=== PATIENT | male | born 1940 | race Caucasian/White ===

== ENCOUNTER → 2017-03-19 | Outpatient (CLI) | payer MEDICARE ==
[~2017-03-19] MED LIST: ACET-2743 PO; ATOR40TA69 PO; CARV25TA PO; CHOL500062 PO; DONE10TA8 PO; FENO150C4 PO; ISOS20TA7 PO; KETO5DRO82 OP; LOSA100T29 PO; MIRA50TA PO; WARF-57 PO; WARF2.5T85 PO
== END | disposition home or self-care (01) ==
LOC: LAB 03-17 11:26
PROVIDERS: ATTEND Internal Medicine Gastroenterology
DX: R19.7 Diarrhea, unspecified (principal)
CPT/HCPCS: 87507

== ENCOUNTER 2021-05-14 06:40 | Observation (INO) | payer MEDICARE ==
[~2021-05-14] VITALS: Ht 162.6 cm; Wt 97.5 kg
[~2021-05-14 06:40] MED LIST changes: -ACET-2743 PO; +ASPI-556 PO; -CARV25TA PO; +CHOL4PAC21 PO; +DIPH1TAB PO; +FENO145T26 PO; -FENO150C4 PO; +GLYC2TAB21 PO; -ISOS20TA7 PO; +ISOS60TA77 PO; +KETO.5OS OD; -KETO5DRO82 OP; +LACT1CAP81 PO; +LEVO25TA4 PO; -LOSA100T29 PO; -WARF-57 PO; +WARF2.5T PO; -WARF2.5T85 PO
[2021-05-14 07:17] LABS: BASOPHILS % (AUTO) 0.3 % (0.0-5.0); EOSINOPHILS % (AUTO) 0.8 % (0.0-8.0); HEMATOCRIT 48.6 % (42-54); LYMPHOCYTES % (AUTO) 1.3 % (21.0-51.0); MEAN CORPUSCULAR HEMOGLOBIN 28.2 pg (27.0-33.0); MEAN CORPUSCULAR HGB CONC 32.3 g/dL (32.0-36.0); MEAN CORPUSCULAR VOLUME 87.4 fL (79-99); NEUTROPHILS % (AUTO) 86.4 % (40.0-77.0); PLATELET COUNT (AUTO) 207 K/uL (130-400); RED BLOOD CELL COUNT(AUTO) 5.56 MIL/uL (4.50-6.20); RED CELL DISTRIBUTION WIDTH 14.6 % (11.0-15.5); WHITE BLOOD COUNT (AUTO) 16.9 K/uL (4.8-10.8)
[2021-05-14] MEDS ORDERED: 0.9%NACL 1000ML 1,000 ML IV SCH (07:30)
[2021-05-14] MEDS ORDERED: 0.9%NACL 1000ML 1,000 ML IV ONE (07:33)
[2021-05-14 07:45] LABS: ALBUMIN 3.8 g/dL (3.5-5.0); BILIRUBIN,TOTAL 0.8 mg/dL (0.2-1.0); CREATININE 1.9 mg/dL (0.5-1.5); POTASSIUM 4.2 mmol/L (3.5-5.1); TOTAL PROTEIN, SERUM 7.1 g/dL (6.0-8.3)
[2021-05-14] MEDS ORDERED: ZOSYN 3.375GM +NS 50ML IV SCH (07:53)
[2021-05-14] MEDS ORDERED: 0.9%NACL 50ML 50 ML IV ONE (08:25)
[2021-05-14] MEDS ORDERED: ACETAMINOPHEN 500 MG TABLET PO SCH (09:30)
[2021-05-14] MEDS ORDERED: ACETAMINOPHEN 500 MG TABLET ONE (09:31)
[2021-05-14] MEDS ORDERED: ONDANSETRON 4MG INJ IVP PRN (13:00)
[2021-05-14] MEDS ORDERED: HYDRALAZINE 20MG/ML VIAL IV PRN (13:00)
[2021-05-14] MEDS: 0.9%NACL 1000ML 1,000 ML IV SCH ×2 (13:05→20:30)
[2021-05-14] MEDS ORDERED: PHARMACY COMMUNICATION MISC SCH (13:30)
[2021-05-14 14:20] VITALS: BP 143/69
[2021-05-14] MEDS: LOPERAMIDE HCL 2 MG CAP PO PRN (14:43)
[2021-05-14 16:00] VITALS: BP 126/75
[2021-05-14 19:57] VITALS: BP 141/67
[2021-05-14] MEDS: ZOSYN 3.375GM +NS 50ML IV SCH (20:32)
[2021-05-14] MEDS ORDERED: FAMOTIDINE 20MG VIAL IV SCH (21:00)
[2021-05-14 23:06] VITALS: BP 133/78
[2021-05-15 03:14] VITALS: BP 165/71
[2021-05-15 07:57] VITALS: BP 138/69
[2021-05-15] MEDS ORDERED: DICY20TA2 PO (08:58)
[2021-05-15] MEDS ORDERED: CEPH500B PO (08:58)
[2021-05-15] MEDS ORDERED: LOPE2CAP PO (08:58)
[2021-05-15] MEDS ORDERED: ENOXAPARIN SODIUM 40 MG/0.4 ML SYRINGE SQ SCH (09:00)
[2021-05-15 09:28] LABS: HEMATOCRIT 37.9 % (42-54); MEAN CORPUSCULAR HEMOGLOBIN 29.5 pg (27.0-33.0); MEAN CORPUSCULAR HGB CONC 32.7 g/dL (32.0-36.0); MEAN CORPUSCULAR VOLUME 90.2 fL (79-99); RED BLOOD CELL COUNT(AUTO) 4.2 MIL/uL (4.50-6.20); RED CELL DISTRIBUTION WIDTH 14.9 % (11.0-15.5); WHITE BLOOD COUNT (AUTO) 14.1 K/uL (4.8-10.8)
[2021-05-15 09:37] LABS: CREATININE 1.7 mg/dL (0.5-1.5); POTASSIUM 3.2 mmol/L (3.5-5.1)
[2021-05-15] MEDS: ZOSYN 3.375GM +NS 50ML IV SCH (10:26)
[2021-05-15] MEDS ORDERED: KCL 20 MEQ ERTAB PO SCH (11:30)
[2021-05-15 12:00] VITALS: BP 129/62
[2021-05-15] MEDS: LOPERAMIDE HCL 2 MG CAP PO PRN (12:52)
[2021-05-16] MEDS ORDERED: ATOR40TA71 PO (01:06)
[2021-05-16] MEDS ORDERED: MIRA50TA PO (01:06)
[2021-05-16] MEDS ORDERED: AMLO-257 PO (01:06)
[2021-05-16] MEDS ORDERED: FAMO20TA8 PO (01:06)
[2021-05-16] MEDS ORDERED: GLYC2TAB21 PO (01:06)
[2021-05-16] MEDS ORDERED: SERT-439 PO (01:06)
[2021-05-16] MEDS ORDERED: AEC81 PO (01:06)
[2021-05-16] MEDS ORDERED: MONT-39 PO (01:06)
[2021-05-16] MEDS ORDERED: ISOS30TA92 PO (01:06)
[2021-05-16] MEDS ORDERED: LORA10TA7 PO (01:06)
[2021-05-16] MEDS ORDERED: MELA10CA2 PO (01:06)
[2021-05-16] MEDS ORDERED: LEVO88TA4 PO (01:06)
[2021-05-16] MEDS ORDERED: CHOL4PAC6 PO (01:06)
[2021-05-16] MEDS ORDERED: BUDE9TAB2 PO (01:06)
[2021-05-16] MEDS ORDERED: WARF-57 PO (01:06)
[2021-05-16] MEDS ORDERED: AZEL23SP2 NS (01:06)
[2021-05-16] MEDS ORDERED: VIT-12 PO (01:06)
[2021-05-16] MEDS ORDERED: KETO.5OS OU (01:06)
[2021-05-16] MEDS ORDERED: ACET-2743 PO (01:06)
[2021-05-16] MEDS ORDERED: WARF2.5T85 PO (01:06)
[2021-05-16] MEDS ORDERED: MV-M1TAB20 PO (01:06)
[2021-05-16] MEDS ORDERED: FENO145T26 PO (01:06)
[2021-05-16] MEDS ORDERED: L.AC1CAP6 PO (01:06)
== END 2021-05-15 14:30 | disposition home or self-care (01) ==
LOC: EDH 06:40 → EDHIP 12:51 → 3CH 14:07 → UNDODISOB 05-15 14:30
PROVIDERS: ADMIT Hospitalist; ATTEND Hospitalist
DX: A41.9 Sepsis, unspecified organism (principal); Z20.822 Contact with and (suspected) exposure to COVID-19; K52.9 Noninfective gastroenteritis and colitis, unspecified; E86.0 Dehydration; N17.9 Acute kidney failure, unspecified; D72.829 Elevated white blood cell count, unspecified; K80.20 Calculus of gallbladder without cholecystitis without obstruction; E03.9 Hypothyroidism, unspecified; E78.5 Hyperlipidemia, unspecified; I12.9 Hypertensive chronic kidney disease with stage 1 through stage 4 chronic kidney disease, or unspecified chronic kidney disease; E11.22 Type 2 diabetes mellitus with diabetic chronic kidney disease; N18.9 Chronic kidney disease, unspecified; R32 Unspecified urinary incontinence; N40.0 Benign prostatic hyperplasia without lower urinary tract symptoms; I25.10 Atherosclerotic heart disease of native coronary artery without angina pectoris; J44.9 Chronic obstructive pulmonary disease, unspecified; F03.90 Unspecified dementia, unspecified severity, without behavioral disturbance, psychotic disturbance, mood disturbance, and anxiety; Z86.73 Personal history of transient ischemic attack (TIA), and cerebral infarction without residual deficits; Z79.82 Long term (current) use of aspirin; Z79.899 Other long term (current) drug therapy; Z87.891 Personal history of nicotine dependence; Z79.01 Long term (current) use of anticoagulants; Z95.2 Presence of prosthetic heart valve
CPT/HCPCS: 36415 ×2; 74176; 80048; 80053; 83605 ×2; 83690; 84484; 85025; 85027; 87040 ×2; 87077; 87186; 87324; 87507; 87635; 93005; 96361 ×2; 96365; 96366 ×2; 96372; 96375; 99285; G0378 ×25; J1650; J2543 ×3; J3490; J7030 ×2

== ENCOUNTER 2021-05-15 18:36 | Inpatient (IN) | payer MEDICARE ==
[~2021-05-15] VITALS: Ht 162 cm; Wt 96.6 kg
[~2021-05-15 18:36] MED LIST changes: +CEPH500B PO; +DICY20TA2 PO; +LOPE2CAP PO
[2021-05-15 19:00] VITALS: BP 118/71
[2021-05-15] MEDS ORDERED: COMPOUND IV REFRIGERATED 1 EACH IVSOLN MISC PRN (20:00)
[2021-05-15] MEDS ORDERED: VANCOMYCIN PROTOCOL PER PHARMACY IV SCH (20:00)
[2021-05-15] MEDS ORDERED: MORPHINE 2 MG SYG IV PRN (21:00)
[2021-05-15] MEDS ORDERED: ACETAMINOPHEN 325 MG TAB PO PRN ×2 (21:00)
[2021-05-15] MEDS ORDERED: ONDANSETRON 4MG INJ IV PRN (21:00)
[2021-05-15] MEDS: 0.9%NACL 1000ML 1,000 ML IV SCH ×2 (21:03→21:11)
[2021-05-15] MEDS: VANCOMYCIN 1.5GM/NS 250ML IV SCH ×2 (21:05)
[2021-05-15] MEDS: FAMOTIDINE 20MG VIAL IV SCH (21:08)
[2021-05-16] VITALS: BP 141/65
[2021-05-16] MEDS ORDERED: ATOR40TA71 PO (01:06)
[2021-05-16] MEDS ORDERED: WARF-57 PO (01:06)
[2021-05-16] MEDS ORDERED: AZEL23SP2 NS (01:06)
[2021-05-16] MEDS ORDERED: SERT-439 PO (01:06)
[2021-05-16] MEDS ORDERED: MV-M1TAB20 PO (01:06)
[2021-05-16] MEDS ORDERED: LORA10TA7 PO (01:06)
[2021-05-16] MEDS ORDERED: ACET-2743 PO (01:06)
[2021-05-16] MEDS ORDERED: BUDE9TAB2 PO (01:06)
[2021-05-16] MEDS ORDERED: L.AC1CAP6 PO (01:06)
[2021-05-16] MEDS ORDERED: ISOS30TA92 PO (01:06)
[2021-05-16] MEDS ORDERED: GLYC2TAB21 PO (01:06)
[2021-05-16] MEDS ORDERED: CHOL4PAC6 PO (01:06)
[2021-05-16] MEDS ORDERED: AEC81 PO (01:06)
[2021-05-16] MEDS ORDERED: LEVO88TA4 PO (01:06)
[2021-05-16] MEDS ORDERED: FENO145T26 PO (01:06)
[2021-05-16] MEDS ORDERED: AMLO-257 PO (01:06)
[2021-05-16] MEDS ORDERED: MELA10CA2 PO (01:06)
[2021-05-16] MEDS ORDERED: MIRA50TA PO (01:06)
[2021-05-16] MEDS ORDERED: MONT-39 PO (01:06)
[2021-05-16] MEDS ORDERED: WARF2.5T85 PO (01:06)
[2021-05-16] MEDS ORDERED: KETO.5OS OU (01:06)
[2021-05-16] MEDS ORDERED: VIT-12 PO (01:06)
[2021-05-16] MEDS ORDERED: FAMO20TA8 PO (01:06)
[2021-05-16 04:00] VITALS: BP 137/56
[2021-05-16 04:59] LABS: BASOPHILS % (AUTO) 0.4 % (0.0-5.0); EOSINOPHILS % (AUTO) 1.5 % (0.0-8.0); HEMATOCRIT 35.1 % (42-54); LYMPHOCYTES % (AUTO) 9.6 % (21.0-51.0); MEAN CORPUSCULAR HEMOGLOBIN 29.8 pg (27.0-33.0); MEAN CORPUSCULAR HGB CONC 33.9 g/dL (32.0-36.0); MONOCYTES % (AUTO) 11.6 % (3.0-13.0); NEUTROPHILS % (AUTO) 76.2 % (40.0-77.0); PLATELET COUNT (AUTO) 161 K/uL (130-400); RED BLOOD CELL COUNT(AUTO) 3.99 MIL/uL (4.50-6.20); RED CELL DISTRIBUTION WIDTH 14.5 % (11.0-15.5); WHITE BLOOD COUNT (AUTO) 11.3 K/uL (4.8-10.8)
[2021-05-16 05:23] LABS: ALBUMIN 2.8 g/dL (3.5-5.0); BILIRUBIN,TOTAL 0.6 mg/dL (0.2-1.0); CREATININE 1.4 mg/dL (0.5-1.5); POTASSIUM 3.5 mmol/L (3.5-5.1)
[2021-05-16 06:28] LABS: ERYTHROCYTE SEDIMENTATION RATE 17 MM/HR (0-20)
[2021-05-16 07:30] VITALS: BP 137/74
[2021-05-16] MEDS: FAMOTIDINE 20MG VIAL IV SCH ×2 (08:42→20:35)
[2021-05-16] MEDS ORDERED: ENOXAPARIN SODIUM 30 MG/0.3 ML SQ SCH (09:00)
[2021-05-16] MEDS ORDERED: LOPERAMIDE HCL 2 MG CAP PO PRN (09:00)
[2021-05-16] MEDS: ACIDOPH PO SCH (09:00)
[2021-05-16] MEDS: PARACASEI B LACTIS PO SCH (09:00)
[2021-05-16] MEDS: 0.9%NACL 1000ML 1,000 ML IV SCH ×4 (09:20→22:43)
[2021-05-16] MEDS: ISOSORBIDE MONO 30MG SR TAB PO SCH (09:33)
[2021-05-16] MEDS: ASPIRIN 81 MG EC TAB PO SCH (09:33)
[2021-05-16] MEDS: AMLODIPINE 5 MG TAB PO SCH (09:33)
[2021-05-16] MEDS: LEVOTHYROXINE 88 MCG TABLET PO SCH (09:33)
[2021-05-16 11:00] VITALS: BP 116/74
[2021-05-16 16:00] VITALS: BP 130/71
[2021-05-16] MEDS ORDERED: WARFARIN SODIUM 2.5 MG TAB PO SCH (16:00)
[2021-05-16 20:16] VITALS: BP 123/73
[2021-05-16] MEDS: VANCOMYCIN 1.5GM/NS 250ML IV SCH ×2 (20:40)
[2021-05-16] MEDS ORDERED: ATORVASTATIN 40 MG TABLET PO SCH (21:00)
[2021-05-17 00:20] VITALS: BP 146/70
[2021-05-17 04:24] VITALS: BP 158/76
[2021-05-17 05:05] LABS: HEMATOCRIT 31.8 % (42-54); MEAN CORPUSCULAR HEMOGLOBIN 29.2 pg (27.0-33.0); MEAN CORPUSCULAR HGB CONC 33.3 g/dL (32.0-36.0); MEAN CORPUSCULAR VOLUME 87.6 fL (79-99); RED BLOOD CELL COUNT(AUTO) 3.63 MIL/uL (4.50-6.20); RED CELL DISTRIBUTION WIDTH 14.5 % (11.0-15.5); WHITE BLOOD COUNT (AUTO) 9.5 K/uL (4.8-10.8)
[2021-05-17 05:13] LABS: CREATININE 1.2 mg/dL (0.5-1.5); POTASSIUM 3.2 mmol/L (3.5-5.1)
[2021-05-17] MEDS: LEVOTHYROXINE 88 MCG TABLET PO SCH (05:34)
[2021-05-17 07:10] VITALS: BP 154/74
[2021-05-17] MEDS ORDERED: POTASSIUM CHLORIDE 10% ELIXIR 20 MEQ/15 ML UDCUP PO PRN (08:00)
[2021-05-17] MEDS ORDERED: LIDOCAINE HCL-MPF 1% 2ML VIAL IV PRN (08:00)
[2021-05-17] MEDS ORDERED: POTASSIUM CHLORIDE 20MEQ/100ML 100 ML IV PRN (08:00)
[2021-05-17] MEDS ORDERED: KCL 20 MEQ ERTAB PO PRN (08:00)
[2021-05-17] MEDS: ASPIRIN 81 MG EC TAB PO SCH (08:30)
[2021-05-17] MEDS: AMLODIPINE 5 MG TAB PO SCH (08:31)
[2021-05-17] MEDS: ISOSORBIDE MONO 30MG SR TAB PO SCH (08:31)
[2021-05-17] MEDS: FAMOTIDINE 20MG VIAL IV SCH (08:31)
[2021-05-17] MEDS: ACIDOPH PO SCH (08:36)
[2021-05-17] MEDS: PARACASEI B LACTIS PO SCH (08:36)
[2021-05-17 11:10] VITALS: BP 136/100
[2021-05-17] MEDS ORDERED: WARFARIN SODIUM 5 MG TAB PO SCH (16:00)
== END 2021-05-17 13:10 | disposition home or self-care (01) | DRG 872 ==
LOC: 3CH 18:36
PROVIDERS: ADMIT Hospitalist; ATTEND Hospitalist
DX: A41.9 Sepsis, unspecified organism (principal); N17.9 Acute kidney failure, unspecified; I12.9 Hypertensive chronic kidney disease with stage 1 through stage 4 chronic kidney disease, or unspecified chronic kidney disease; N18.9 Chronic kidney disease, unspecified; E86.0 Dehydration; E03.9 Hypothyroidism, unspecified; E78.5 Hyperlipidemia, unspecified; I25.10 Atherosclerotic heart disease of native coronary artery without angina pectoris; K52.9 Noninfective gastroenteritis and colitis, unspecified; N40.0 Benign prostatic hyperplasia without lower urinary tract symptoms; R32 Unspecified urinary incontinence; J44.9 Chronic obstructive pulmonary disease, unspecified; Z79.01 Long term (current) use of anticoagulants; Z95.2 Presence of prosthetic heart valve; Z87.891 Personal history of nicotine dependence; Z86.73 Personal history of transient ischemic attack (TIA), and cerebral infarction without residual deficits; Z83.3 Family history of diabetes mellitus; Z82.5 Family history of asthma and other chronic lower respiratory diseases; Z82.49 Family history of ischemic heart disease and other diseases of the circulatory system; Z80.9 Family history of malignant neoplasm, unspecified
CPT/HCPCS: 36415; 80048; 80053; 84145; 85025; 85027; 85651; 87040; G0378; J1650; J3370; J3480; J3490; J7030; J7050

== ENCOUNTER → 2021-11-14 | Outpatient (CLI) | payer MEDICARE ==
[~2021-11-14] MED LIST changes: +ACET-2743 PO; +AEC81 PO; +AMLO-257 PO; -ASPI-556 PO; -ATOR40TA69 PO; +ATOR40TA71 PO; +AZEL23SP2 NS; +BUDE9TAB2 PO; -CHOL4PAC21 PO; +CHOL4PAC6 PO; -CHOL500062 PO; -DIPH1TAB PO; -DONE10TA8 PO; +FAMO20TA8 PO; +ISOS30TA92 PO; -ISOS60TA77 PO; -KETO.5OS OD; +KETO.5OS OU; +L.AC1CAP6 PO; -LACT1CAP81 PO; -LEVO25TA4 PO; +LEVO88TA4 PO; +LORA10TA7 PO; +MELA10CA2 PO; +MONT-39 PO; +MV-M1TAB20 PO; +REGADENOSON 0.4 MG/5 ML PF SYG IVP SCH; +SERT-439 PO; +VIT-12 PO; +WARF-57 PO; -WARF2.5T PO; +WARF2.5T85 PO
== END | disposition home or self-care (01) ==
LOC: RAH 08:49
PROVIDERS: ATTEND Internal Medicine Interventional Cardiology
DX: Z01.810 Encounter for preprocedural cardiovascular examination (principal); N32.81 Overactive bladder
CPT/HCPCS: 78452; 96374; 93017; J2785; A9500 ×2